=== PATIENT | female | born 2000 | race Caucasian/White ===

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

== ENCOUNTER 2022-05-26 20:47 | Emergency (ER) | payer OTHER ==
[~2022-05-26] VITALS: Ht 157.5 cm; Wt 44.8 kg
[2022-05-26 22:48] VITALS: BP 104/73
== END 2022-05-26 22:49 | disposition home or self-care (01) ==
LOC: M ED 20:47
DX: S90.32XA Contusion of left foot, initial encounter (principal); S90.812A Abrasion, left foot, initial encounter; W22.8XXA Striking against or struck by other objects, initial encounter; Y92.89 Other specified places as the place of occurrence of the external cause; F32.A Depression, unspecified; F41.9 Anxiety disorder, unspecified

== ENCOUNTER → 2022-08-17 | Outpatient (CLI) | payer OTHER | LOC: M WUC 13:11 | PROVIDERS: ATTEND Physician Assistant | DX: S69.91XA Unspecified injury of right wrist, hand and finger(s), initial encounter (principal); X58.XXXA Exposure to other specified factors, initial encounter; Y92.9 Unspecified place or not applicable; Y93.9 Activity, unspecified; Y99.9 Unspecified external cause status ==

== ENCOUNTER → 2022-10-18 | Outpatient (CLI) | payer OTHER ==
[2022-10-18 16:58] LABS: THYROID STIMULATING HORMONE 2.54 uIU/ML (0.48-4.17)
[2022-10-18 16:59] LABS: FREE T4 1.17 NG/DL (0.83-1.43)
== END ==
LOC: M LAB 14:34
PROVIDERS: ATTEND Physician Assistant
DX: R94.6 Abnormal results of thyroid function studies (principal)

== ENCOUNTER → 2023-01-20 | Outpatient (CLI) | payer OTHER | LOC: M RAD 13:29 | PROVIDERS: ATTEND Physician Assistant | DX: M79.641 Pain in right hand (principal) ==

== ENCOUNTER → 2023-02-07 | Outpatient (CLI) | payer OTHER | LOC: M WUC 15:30 | PROVIDERS: ATTEND Student in an Organized Health Care Education/Training Program | DX: M25.572 Pain in left ankle and joints of left foot (principal) ==

== ENCOUNTER 2024-04-22 11:56 | Observation (INO) | payer MEDICAID, OTHER ==
[~2024-04-22] VITALS: Ht 157.5 cm; Wt 45.9 kg
[~2024-04-22 11:56] MED LIST changes: +ONDA-282 PO; -ONDA4TAB6 PO
[2024-04-22] MEDS ORDERED: PREN1CHW PO (12:03)
[2024-04-22 12:45] LABS: BASO # 0.1 10^3/uL (0.0-0.2); BASO % 0.4 % (0.0-1.0); EOS # 0.1 10^3/uL (0.0-0.5); EOS % 0.8 % (0.0-3.0); HEMOGLOBIN 12.2 g/dl (12.0-15.5); LYMPH # 1.4 10^3/uL (1.5-5.0); LYMPH % 12.5 % (24.0-44.0); MEAN CORPUSCULAR HEMOGLOBIN 32.6 pg (27.0-33.0); MEAN CORPUSCULAR HGB CONC 33.9 g/dl (32.0-36.5); MEAN CORPUSCULAR VOLUME 96.3 fl (80.0-96.0); MONO # 0.6 10^3/uL (0.0-0.8); MONO % 4.9 % (2.0-8.0); NEUTROPHILS # 9.4 10^3/uL (1.5-8.5); NEUTROPHILS % 81.1 % (36.0-66.0); PLATELET COUNT, AUTOMATED 329 10^3/uL (150-450); RED BLOOD COUNT 3.74 10^6/uL (4.00-5.40); WHITE BLOOD COUNT 11.6 10^3/uL (4.0-10.0)
[2024-04-22 13:08] LABS: HCG, SERUM QUANTITATIVE 794.1 MIU/ML (<4.2)
[2024-04-22 13:10] LABS: BLOOD UREA NITROGEN 15 MG/DL (9-23); CARBON DIOXIDE LEVEL 26 MMOL/L (20-31); CHLORIDE LEVEL 108 MMOL/L (98-107); CREATININE FOR GFR 0.62 MG/DL (0.55-1.30); GLOMERULAR FILTRATION RATE > 60.0 (>60); GLUCOSE, FASTING 90 MG/DL (60-100); POTASSIUM SERUM 3.9 MMOL/L (3.5-5.1); SODIUM LEVEL 140 MMOL/L (136-145)
[2024-04-22] MEDS: NS 1,000 ML IV SCH (15:25)
[2024-04-22] MEDS ORDERED: HOME MED LIST COMPLETE! XX SCH (16:30)
[2024-04-22] MEDS ORDERED: fentaNYL 100 MCG/2 ML INJECTION As Ordered ONE (17:26)
[2024-04-22] MEDS ORDERED: propofoL 200 MG/20 ML VIAL As Ordered ONE (17:26)
[2024-04-22] MEDS ORDERED: SUGAMMADEX SODIUM 500 MG/5 ML VIAL (BRIDION) As Ordered ONE (17:26)
[2024-04-22] MEDS ORDERED: MIDAZOLAM INJ 2MG/2ML VIAL As Ordered ONE (17:26)
[2024-04-22] MEDS ORDERED: ROCURONIUM BROMIDE 50MG/5ML VIAL As Ordered ONE (17:26)
[2024-04-22] MEDS ORDERED: ONDANSETRON 4MG 2ML VIAL As Ordered ONE (17:26)
[2024-04-22] MEDS ORDERED: KETOROLAC 60MG 2ML VIAL As Ordered ONE (17:26)
[2024-04-22] MEDS ORDERED: PHENYLephrine 500MCG 5ML (100MCG/ML) SYRINGE As Ordered ONE (17:26)
[2024-04-22] MEDS ORDERED: LIDOCAINE 2% 100MG/5ML SDV (FOR ANES.) As Ordered ONE (17:26)
[2024-04-22] MEDS ORDERED: MORPHINE 10 MG/ML 1ML VIAL As Ordered ONE (18:21)
[2024-04-22] MEDS ORDERED: fentaNYL 100 MCG/2 ML INJECTION IV PRN (19:15)
[2024-04-22] MEDS ORDERED: oxyCODONE 5MG TAB PO PRN ×2 (19:15→21:15)
[2024-04-22] MEDS ORDERED: MEPERIDINE 25 MG/ML 1ML VIAL IV PRN (19:15)
[2024-04-22] MEDS ORDERED: ONDANSETRON 4MG 2ML VIAL IV PRN (19:15)
[2024-04-22] MEDS ORDERED: MORPHINE 2 MG/ML 1ML VIAL IV PRN (19:15)
[2024-04-22 20:00] VITALS: BP 84/49; TEMP 98.8; O2SAT 99
[2024-04-22] MEDS: SIMETHICONE 80MG CHEW TAB PO PRN (20:14)
[2024-04-22] MEDS: ACETAMINOPHEN 500 MG TAB PO SCH (20:15)
[2024-04-22 20:30] VITALS: BP 90/55; TEMP 97.9; O2SAT 98
[2024-04-22] MEDS: METOCLOPRAMIDE INJ 10MG/2ML VIAL IV PRN (20:38)
[2024-04-22 21:00] VITALS: BP 88/50; TEMP 97.7; O2SAT 98
[2024-04-22 22:00] VITALS: BP 80/45; TEMP 98; O2SAT 97
[2024-04-22] MEDS: LR 1,000 ML IV ONE (22:30)
[2024-04-22 23:00] VITALS: BP 82/46; TEMP 97.7; O2SAT 97
[2024-04-23] VITALS: BP 91/55; TEMP 98; O2SAT 98
[2024-04-23] MEDS: ONDANSETRON 4MG 2ML VIAL IV PRN (00:13)
[2024-04-23] MEDS: LR 1,000 ML IV SCH (00:30)
[2024-04-23 04:00] VITALS: BP 99/56; TEMP 98.3; O2SAT 99
[2024-04-23] MEDS: oxyCODONE 5MG TAB PO PRN (04:12)
[2024-04-23 07:17] LABS: HEMATOCRIT 30.3 % (36.0-47.0); HEMOGLOBIN 10.3 g/dl (12.0-15.5); MEAN CORPUSCULAR HEMOGLOBIN 33.2 pg (27.0-33.0); MEAN CORPUSCULAR VOLUME 97.7 fl (80.0-96.0); PLATELET COUNT, AUTOMATED 292 10^3/uL (150-450)
[2024-04-23 08:00] VITALS: BP 103/53; TEMP 98.4; O2SAT 99
[2024-04-23 12:00] VITALS: BP 102/57; TEMP 99.3; O2SAT 99
[2024-04-23] MEDS ORDERED: ACET-683 PO (12:39)
[2024-04-24] MEDS ORDERED: PERC5TAB12 PO (00:44)
== END 2024-04-23 13:19 | disposition home or self-care (01) ==
LOC: M ED 11:56 → M SDC 16:48 → M ED INP 19:41 → M PED 19:55
PROVIDERS: ADMIT Obstetrics & Gynecology; ATTEND Obstetrics & Gynecology
DX: O26.891 Other specified pregnancy related conditions, first trimester (principal); N83.11 Corpus luteum cyst of right ovary; O99.611 Diseases of the digestive system complicating pregnancy, first trimester; K66.1 Hemoperitoneum; O99.331 Smoking (tobacco) complicating pregnancy, first trimester; F17.290 Nicotine dependence, other tobacco product, uncomplicated; O99.321 Drug use complicating pregnancy, first trimester; F12.10 Cannabis abuse, uncomplicated; Z88.1 Allergy status to other antibiotic agents; Z88.5 Allergy status to narcotic agent; Z3A.01 Less than 8 weeks gestation of pregnancy
CPT/HCPCS: 36415; 58662; 76801; 76817; 80048; 81001; 84702; 85025; 85027; 86850; 86900; 86901; 93976; 96361; 96374; 96375; 99284; J0665; J1100; J1885; J2250; J2371; J2405; J2765; J3010

== ENCOUNTER 2024-04-23 18:35 | Emergency (ER) | payer MEDICAID ==
[~2024-04-23] VITALS: Ht 157.5 cm; Wt 45.9 kg
[~2024-04-23 18:35] MED LIST changes: +PREN1CHW PO
[2024-04-23] MEDS: ONDANSETRON 4MG 2ML VIAL IV ONE (21:16)
[2024-04-23] MEDS: MORPHINE 2 MG/ML 1ML VIAL IV ONE (21:17)
[2024-04-23 21:23] LABS: BASO % 0.2 % (0.0-1.0); EOS # 0.1 10^3/uL (0.0-0.5); EOS % 1.1 % (0.0-3.0); HEMATOCRIT 30.7 % (36.0-47.0); HEMOGLOBIN 10.5 g/dl (12.0-15.5); LYMPH % 29.4 % (24.0-44.0); MEAN CORPUSCULAR HEMOGLOBIN 33.5 pg (27.0-33.0); MEAN CORPUSCULAR HGB CONC 34.2 g/dl (32.0-36.5); MEAN CORPUSCULAR VOLUME 98.1 fl (80.0-96.0); MONO # 0.7 10^3/uL (0.0-0.8); MONO % 7.3 % (2.0-8.0); NEUTROPHILS # 6.3 10^3/uL (1.5-8.5); NEUTROPHILS % 61.8 % (36.0-66.0); PLATELET COUNT, AUTOMATED 287 10^3/uL (150-450); RED BLOOD COUNT 3.13 10^6/uL (4.00-5.40); WHITE BLOOD COUNT 10.2 10^3/uL (4.0-10.0)
[2024-04-23] MEDS ORDERED: ISOVUE-370 76% 100ML VIAL As Ordered ONE (21:26)
[2024-04-23] MEDS: diphenhydrAMINE 50MG/ML VIAL IV STA (21:34)
[2024-04-23 21:47] LABS: LIPASE 25 U/L (12-53)
[2024-04-23 21:49] LABS: ALKALINE PHOSPHATASE 53 U/L (46-116); ALT/SGPT 9 U/L (7.0-40); AST/SGOT < 8 U/L (<34); BILIRUBIN,DIRECT < 0.1 MG/DL (<0.4); BILIRUBIN,TOTAL 0.2 MG/DL (0.3-1.2); TOTAL PROTEIN 5.4 G/DL (5.7-8.2)
[2024-04-23] MEDS: SIMETHICONE 80MG CHEW TAB PO ONE (22:55)
[2024-04-24] MEDS ORDERED: PERC5TAB12 PO (00:44)
[2024-04-24 00:46] VITALS: BP 96/54; TEMP 98.6; O2SAT 99
[2024-04-24] MEDS: OXYCODONE/APAP 5MG/325MG(HOME DOSE PACK) PO ONE (00:51)
== END 2024-04-24 00:48 | disposition home or self-care (01) ==
LOC: M ED 18:35
DX: O99.891 Other specified diseases and conditions complicating pregnancy (principal); Z3A.01 Less than 8 weeks gestation of pregnancy; Z88.5 Allergy status to narcotic agent; Z88.1 Allergy status to other antibiotic agents
CPT/HCPCS: 74177; 80047; 80076; 83690; 85025; 96374; 96375; 99284; J1200; J2405; Q9967

== ENCOUNTER → 2024-04-24 | Outpatient (CLI) | payer MEDICAID ==
[~2024-04-24] MED LIST changes: +PERC5TAB12 PO
== END ==
LOC: M LAB 14:08
PROVIDERS: ATTEND Obstetrics & Gynecology
DX: O36.80X0 Pregnancy with inconclusive fetal viability, not applicable or unspecified (principal); Z3A.00 Weeks of gestation of pregnancy not specified

== ENCOUNTER → 2024-04-30 | Outpatient (CLI) | payer MEDICAID | LOC: M LAB 13:22 | PROVIDERS: ATTEND Obstetrics & Gynecology | DX: Z34.91 Encounter for supervision of normal pregnancy, unspecified, first trimester (principal); Z3A.01 Less than 8 weeks gestation of pregnancy ==

== ENCOUNTER 2024-05-03 12:15 | Emergency (ER) | payer MEDICAID ==
[~2024-05-03] VITALS: Ht 157.5 cm; Wt 44.6 kg
[2024-05-03] MEDS: ACETAMINOPHEN TAB 650MG DOSE (2X325MG) PO ONE (15:07)
[2024-05-03] MEDS: METOCLOPRAMIDE INJ 10MG/2ML VIAL IV ONE (15:07)
[2024-05-03] MEDS: NS 1,000 ML IV ONE (15:08)
[2024-05-03 15:09] LABS: BASO # 0.1 10^3/uL (0.0-0.2); BASO % 0.4 % (0.0-1.0); EOS # 0.1 10^3/uL (0.0-0.5); EOS % 0.4 % (0.0-3.0); HEMATOCRIT 36.6 % (36.0-47.0); HEMOGLOBIN 12.6 g/dl (12.0-15.5); LYMPH # 2.2 10^3/uL (1.5-5.0); LYMPH % 15.6 % (24.0-44.0); MEAN CORPUSCULAR HEMOGLOBIN 33.3 pg (27.0-33.0); MEAN CORPUSCULAR HGB CONC 34.4 g/dl (32.0-36.5); MEAN CORPUSCULAR VOLUME 96.8 fl (80.0-96.0); MONO # 0.6 10^3/uL (0.0-0.8); MONO % 4.2 % (2.0-8.0); NEUTROPHILS # 11.1 10^3/uL (1.5-8.5); PLATELET COUNT, AUTOMATED 360 10^3/uL (150-450); RED BLOOD COUNT 3.78 10^6/uL (4.00-5.40); WHITE BLOOD COUNT 14.1 10^3/uL (4.0-10.0)
[2024-05-03 15:21] LABS: INR 1.02; PARTIAL THROMBOPLASTIN TIME 28.7 SECONDS (24.8-34.2); PROTHROMBIN TIME 13.1 SECONDS (12.5-14.5)
[2024-05-03 15:38] LABS: ALKALINE PHOSPHATASE 61 U/L (46-116); ALT/SGPT 11 U/L (7.0-40); AST/SGOT < 8 U/L (<34); BILIRUBIN,DIRECT 0.2 MG/DL (<0.4); BILIRUBIN,TOTAL 0.5 MG/DL (0.3-1.2); BLOOD UREA NITROGEN 6 MG/DL (9-23); CALCIUM LEVEL 9.5 MG/DL (8.5-10.1); CARBON DIOXIDE LEVEL 26 MMOL/L (20-31); CHLORIDE LEVEL 107 MMOL/L (98-107); CREATININE FOR GFR 0.55 MG/DL (0.55-1.30); GLOMERULAR FILTRATION RATE > 60.0 (>60); GLUCOSE, FASTING 77 MG/DL (60-100); POTASSIUM SERUM 3.8 MMOL/L (3.5-5.1); SODIUM LEVEL 139 MMOL/L (136-145); TOTAL PROTEIN 6.7 G/DL (5.7-8.2)
[2024-05-03 15:51] LABS: HCG, SERUM QUANTITATIVE 47002.2 MIU/ML (<4.2)
[2024-05-03] MEDS ORDERED: REGL10TA6 PO (16:37)
[2024-05-03] MEDS ORDERED: ACET325C5 PO (16:37)
[2024-05-03 16:49] VITALS: BP 104/65; TEMP 98.9; O2SAT 100
== END 2024-05-03 17:00 | disposition home or self-care (01) ==
LOC: M ED 12:15
DX: O21.9 Vomiting of pregnancy, unspecified (principal); Z3A.01 Less than 8 weeks gestation of pregnancy; O99.341 Other mental disorders complicating pregnancy, first trimester; Z88.1 Allergy status to other antibiotic agents; Z88.5 Allergy status to narcotic agent
CPT/HCPCS: 76817; 76856; 80048; 80076; 81001; 84702; 85025; 85610; 85730; 86850; 86900; 86901; 93976; 96374; 99284; J2765

== ENCOUNTER → 2025-05-28 | Outpatient (CLI) | payer MEDICAID, OTHER ==
[~2025-05-28] MED LIST changes: +ACET325C5 PO; +REGL10TA6 PO
== END ==
LOC: M RAD 15:43
PROVIDERS: ATTEND Student in an Organized Health Care Education/Training Program
DX: M25.562 Pain in left knee (principal)

== ENCOUNTER 2025-06-23 16:50 | Emergency (ER) | payer OTHER ==
[~2025-06-23] VITALS: Ht 157.5 cm; Wt 45.0 kg
[2025-06-23] MEDS: ONDANSETRON 4MG 2ML VIAL IV ONE (23:03)
[2025-06-23 23:07] LABS: BASO # 0.1 10^3/uL (0.0-0.2); BASO % 0.6 % (0.0-1.0); EOS # 0.1 10^3/uL (0.0-0.5); EOS % 1.0 % (0.0-3.0); LYMPH # 2.2 10^3/uL (1.5-5.0); LYMPH % 27.1 % (24.0-44.0); MONO # 0.5 10^3/uL (0.0-0.8); MONO % 5.8 % (2.0-8.0); NEUTROPHILS # 5.2 10^3/uL (1.5-8.5); NEUTROPHILS % 65.4 % (36.0-66.0); PLATELET COUNT, AUTOMATED 318 10^3/uL (150-450)
[2025-06-23 23:09] LABS: KETONE, URINE AUTO RFX NEGATIVE (NEGATIVE); LEUKOCYTE ESTERASE UR AUTO RFX NEGATIVE (NEGATIVE); NITRITE, URINE AUTO RFX NEGATIVE (NEGATIVE); RBC, URINE AUTO RFX 1 /HPF (0-3); SQUAM EPITHELIAL CELL UR AURFX 0 /HPF (0-6); WBC, URINE AUTO RFX 0 /HPF (0-3)
[2025-06-23] MEDS ORDERED: ISOVUE-370 76% 100 ML VIAL As Ordered ONE (23:30)
[2025-06-23 23:38] LABS: HCG, SERUM QUALITATIVE NEGATIVE (NEGATIVE)
[2025-06-23 23:48] LABS: ALT/SGPT 13 U/L (7.0-40); AST/SGOT 20 U/L (<34)
[2025-06-24] MEDS: KETOROLAC 30 MG/ML 1 ML VIAL IV ONE (00:22)
[2025-06-24] MEDS ORDERED: BACIOIN5 OP (01:26)
[2025-06-24] MEDS ORDERED: ONDA-282 PO (01:26)
[2025-06-24 01:36] VITALS: BP 107/71; TEMP 98.1; O2SAT 96
== END 2025-06-24 01:38 | disposition home or self-care (01) ==
LOC: M ED 16:50
DX: R10.9 Unspecified abdominal pain (principal); R11.0 Nausea; Z88.1 Allergy status to other antibiotic agents; Z88.5 Allergy status to narcotic agent
CPT/HCPCS: 74177; 80047; 80076; 81001; 83690; 84703; 85025; 96374; 99284; J1885; J2405; Q9967

== ENCOUNTER 2025-08-12 13:41 | Emergency (ER) | payer OTHER ==
[~2025-08-12] VITALS: Ht 157.5 cm; Wt 44.3 kg
[~2025-08-12 13:41] MED LIST changes: +BACIOIN5 OP
[2025-08-12] MEDS ORDERED: BENZ-18 (14:00)
[2025-08-12] MEDS ORDERED: ALBU8.5H (14:00)
[2025-08-12 16:01] VITALS: BP 112/62; TEMP 97; O2SAT 100
== END 2025-08-12 18:28 | disposition left against medical advice (07) ==
LOC: M ED 13:41
DX: Z53.21 Procedure and treatment not carried out due to patient leaving prior to being seen by health care provider (principal)

== ENCOUNTER → 2025-08-16 | Outpatient (CLI) | payer OTHER ==
[~2025-08-16] MED LIST changes: +ALBU8.5H; +BENZ-18
[2025-08-16 12:42] LABS: BASO # 0.0 10^3/uL (0.0-0.2); BASO % 0.5 % (0.0-1.0); EOS # 0.1 10^3/uL (0.0-0.5); EOS % 1.4 % (0.0-3.0); LYMPH # 2.0 10^3/uL (1.5-5.0); LYMPH % 36.6 % (24.0-44.0); MONO # 0.3 10^3/uL (0.0-0.8); MONO % 6.0 % (2.0-8.0); NEUTROPHILS # 3.1 10^3/uL (1.5-8.5); NEUTROPHILS % 55.5 % (36.0-66.0); PLATELET COUNT, AUTOMATED 283 10^3/uL (150-450)
[2025-08-16 12:47] LABS: ERYTHROCYTE SEDIMENTATION RATE 4 mm/hr (0-20)
[2025-08-16 13:17] LABS: ALT/SGPT 11 U/L (7.0-40); AST/SGOT 15 U/L (<34); C REACTIVE PROTEIN QUANTITATIV < 0.50 MG/DL (<1.0); CALCIUM LEVEL 9.6 MG/DL (8.5-10.1); CARBON DIOXIDE LEVEL 30 MMOL/L (20-31); CHLORIDE LEVEL 104 MMOL/L (98-107); CREATININE FOR GFR 0.71 MG/DL (0.55-1.30); GLOMERULAR FILTRATION RATE > 90.0 (>60); POTASSIUM SERUM 3.9 MMOL/L (3.5-5.1); SODIUM LEVEL 141 MMOL/L (136-145)
[2025-08-16 13:19] LABS: THYROGLOBULIN ANTIBODY 34.0 U/ML (<60.0); THYROID PEROXIDASE ANTIBODY < 28.0 U/ML (<60.0); TOTAL 25(OH) VITAMIN D 17.1 NG/ML (20.0-100.0)
[2025-08-16 13:20] LABS: FREE T4 1.41 NG/DL (0.89-1.76)
[2025-08-16 13:27] LABS: ESTIMATED AVERAGE GLUCOSE 108.0 MG/DL (60-110)
[2025-08-16 13:50] LABS: HIV 1&2 SCREEN NEGATIVE (NEGATIVE)
[2025-08-16 13:57] LABS: HEPATITIS C VIRUS ABY INDEX 0.02 INDEX (<0.8)
== END ==
LOC: M RAD 11:45
PROVIDERS: ATTEND Nurse Practitioner Family
DX: R63.4 Abnormal weight loss (principal); E55.9 Vitamin D deficiency, unspecified; R94.6 Abnormal results of thyroid function studies